=== PATIENT | female | born 1980 | race Caucasian/White ===

== ENCOUNTER 2024-08-10 08:18 | Day surgery (SDC) | payer BC ==
[2024-08-10] MEDS ORDERED: LIDOCAINE 1% (10MG/ML) FOR IV START INTRADERMA PRN (08:44)
[2024-08-10 09:17] VITALS: RESP 16; TEMP 98.5
[2024-08-10] MEDS: IV FLUID CONTINUATION 1,000 ML IV ONE (09:25)
[2024-08-10] MEDS: LACTATED RINGERS 1,000 ML IV SCH (09:26)
[2024-08-10] MEDS ORDERED: PROPOFOL 10 MG/ML 20 ML VIAL IV ONE (09:44)
--- NOTE | 2024-08-10 09:48 | P.GSHP ---
History of Present Illness H&P Date: 08/10/24 Chief Complaint: Epigastric abdominal pain, gastritis Is a 43-year-old female who send epigastric abdominal pain. Patient notes EGD to evaluate for possible gastritis. Past Medical History Past Medical History: No Reported History Additional Past Medical History / Comment(s): RT UPPER ABDOMINAL PAIN History of Any Multi-Drug Resistant Organisms: None Reported Past Surgical History: Cholecystectomy, Hysterectomy Additional Past Surgical History / Comment(s): WISDOM TEETH AND "I" TEETH REMOVED Past Anesthesia/Blood Transfusion Reactions: No Reported Reaction, Motion Sickness Additional Past Anesthesia/Blood Transfusion Reaction / Comment(s): NEVER HAS HAD GENERAL ANESTHESIA Smoking Status: Former smoker - Past Family History Mother Family Medical History: No Reported History Additional Family Medical History / Comment(s): Mother is alive at age 53 and healthy. Father Family Medical History: Hypertension Additional Family Medical History / Comment(s): Father is alive at age 53 with past medical history for hypertension. Sister(s) Additional Family Medical History / Comment(s): Patient has 3/2 sisters that are healthy. She has no brothers. Patient has 2 children of her own one 9-year-old son and a [id number] daughter that are healthy. Medications and Allergies Home Medications Medication Instructions Recorded Confirmed Type Escitalopram [Lexapro] 10 mg PO DAILY 08/10/24 08/10/24 History lamoTRIgine [LaMICtal] 200 mg PO DAILY 08/10/24 08/10/24 History Allergies Allergy/AdvReac Type Severity Reaction Status Date / Time codeine AdvReac Nausea & Verified 08/10/24 09:07 Vomiting Surgical - Exam Vital Signs Temp Pulse Resp BP Pulse Ox 98.5 F 71 16 136/96 100 08/10/24 09:16 08/10/24 09:16 08/10/24 09:16 08/10/24 09:16 08/10/24 09:16 - General well developed, well nourished, no distress - Eyes PERRL - ENT normal pinna - Neck no masses - Respiratory normal expansion - Cardiovascular Rhythm: regular - Abdomen Abdomen: soft, non tender Assessment and Plan Plan: Epigastric Lázaro pain, gastritis. Will perform EGD.
--- NOTE | 2024-08-10 09:59 | P.OP ---
Date of Procedure: 08/10/24 Preoperative Diagnosis: Gastritis Postoperative Diagnosis: Antral gastritis Procedure(s) Performed: EGD Anesthesia: MAC Surgeon: Bar Galindo Pathology: other ([facility]) Condition: stable Disposition: PACU Description of Procedure: The patient was placed on the endoscopy table in the lateral position. She received IV sedation. The gas was placed oropharynx passed in the esophagus and stomach. Scope was in place through the pylorus. The first and second portion of the duodenum appeared normal. The scope was then brought back to the antrum this appeared mildly F inflamed m. A biopsy performed. The scope was then retroflexed and the Mainer of the stomach appeared normal. The GE junction was at 40 cm. The distal esophagus appeared normal. The proximal esophagus appeared normal. Scope withdrawn for the patient.
[2024-08-10 10:13] VITALS: BP 129/89
[2024-08-10 10:23] VITALS: PULSE 63
== END 2024-08-10 10:35 | disposition home or self-care (01) ==
LOC: ORWHC2ENDO 08:18
PROVIDERS: ATTEND Surgery
DX: K29.70 Gastritis, unspecified, without bleeding
CPT/HCPCS: 43239; 88305

== ENCOUNTER → 2025-03-13 | Outpatient (CLI) | payer BC ==
[2025-03-13 17:17] VITALS: BP 126/90; PULSE 90; RESP 16; TEMP 98.8
--- NOTE | 2025-03-13 17:49 | P.SLEEP ---
History of Present Illness H&P Date: 03/13/25 This is a 44-year-old female patient with multitude of sleep complaints. The patient is having loud snoring, sleep fragmentation, sleep talking, and at times she is acting up on her dreams. She is known to have chronic anxiety and depression and she has had major depression episodes in the past and heart disease has been well treated on a combination of Lexapro and Lamictal. She is working at [employer]. Her functionality seems to be affected as the patient takes breaks during lunchtime when she goes to her car to take a nap. She goes to bed at 10:30 PM wakes up 6 AM in the morning and she maintains the same sleep schedule on weekends. Upon awakening in the morning, the patient f eels excessively fatigued and not refreshed. She feels that her sleep quality is poor. No sleep paralysis. No hallucinations. No cataplexy. No substance abuse. No head trauma. No previous history of stroke. No multiple sclerosis or any other neurological disorders. She drinks 2 cups of coffee in the morning. No smoking. No alcoholism. No substance abuse. No grinding of the teeth. No nocturnal panic attacks. No restlessness in lower extremities. She has gained approximate 20 pounds over the past 5 years. Review of Systems Constitutional: Reports daytime sleepiness, Reports fatigue, Reports weight gain Eyes: denies as per HPI, denies blurred vision, denies bulging eye, denies decreased vision, denies diplopia, denies discharge, denies dry eye, denies irritation, denies itching, denies pain, denies photophobia, denies loss of peripheral vision, denies loss of vision, denies tunnel vision/blind spots Ears: deny: decreased hearing, ear discharge, earache, tinnitus Ears, nose, mouth and throat: Reports as per HPI Breasts: absent: as per HPI, change in shape, gynecomastia, masses, nipple discharge, pain, skin changes, swelling Cardiovascular: Reports as per HPI Respiratory: Reports snoring Gastrointestinal: Reports as per HPI Genitourinary: Reports as per HPI Menstruation: Reports as per HPI Musculoskeletal: Reports as per HPI Musculoskeletal: absent: ankle pain, ankle stiffness, ankle swelling, as per HPI, elbow pain, elbow stiffness, elbow swelling, foot pain, foot stiffness, foot swelling, hand pain, hand stiffness, hand swelling, hip pain, hip stiffness, hip swelling, knee pain, knee stiffness, knee swelling, shoulder pain, shoulder stiffness, shoulder swelling, wrist pain, wrist stiffness, wrist swelling Integumentary: Reports as per HPI Neurological: Reports as per HPI Psychiatric: Reports anxiety, Reports change in sleep habits, Reports depression, Reports hypersomnia, Reports sleep disturbances Endocrine: Reports fatigue Hematologic/Lymphatic: Reports as per HPI Allergic/Immunologic: Reports as per HPI Past Medical History Past Medical History: No Reported History, Hyperlipidemia History of Any Multi-Drug Resistant Organisms: None Reported Past Surgical History: Cholecystectomy, Hysterectomy Additional Past Surgical History / Comment(s): WISDOM TEETH AND "I" TEETH REMOVED Past Anesthesia/Blood Transfusion Reactions: No Reported Reaction, Motion Sickness Additional Past Anesthesia/Blood Transfusion Reaction / Comment(s): NEVER HAS HAD GENERAL ANESTHESIA Past Psychological History: Depression Smoking Status: Former smoker Past Alcohol Use History: None Reported Additional Past Alcohol Use History / Comment(s): QUIT SMOKING FEBRUARY 2015, SMOKED FOR APPROX 15 YRS Past Drug Use History: None Reported - Past Family History Mother Family Medical History: No Reported History, Hyperlipidemia Additional Family Medical History / Comment(s): Mother is alive at age 53 and healthy. Father Family Medical History: Hyperlipidemia, Hypertension Additional Family Medical History / Comment(s): Father is alive at age 53 with past medical history for hypertension. Sister(s) Additional Family Medical History / Comment(s): Patient has 3/2 sisters that are healthy. She has no brothers. Patient has 2 children of her own one 9-year-old son and a [id number] daughter that are healthy. Medications and Allergies Home Medications Medication Instructions Recorded Confirmed Type Escitalopram [Lexapro] 10 mg PO DAILY 08/10/24 03/13/25 History lamoTRIgine [LaMICtal] 200 mg PO DAILY 08/10/24 03/13/25 History Cyclobenzaprine [Flexeril] 10 mg PO DAILY 03/13/25 03/13/25 History Gabapentin [Neurontin] 100 mg PO DAILY 03/13/25 03/13/25 History Allergies Allergy/AdvReac Type Severity Reaction Status Date / Time codeine AdvReac Nausea & Verified 08/10/24 09:07 Vomiting Physical Exam Vitals: Vital Signs Temp Pulse Resp BP Pulse Ox 03/13/25 17:15 98.8 F 90 16 126/90 100 The patient appeared well nourished and normally developed. Vital signs as documented. Body mass index is 26.3 Head exam is unremarkable. No scleral icterus or corneal arcus noted. Neck is without jugular venous distension, thyromegaly, or carotid bruits. Carotid upstrokes are brisk bilaterally. The patient has a Mallampati class III and an overbite Lungs are clear to auscultation and percussion. Cardiac exam reveals the PMI to be normally sized and situated. Rhythm is regular. First and second heart sounds normal. No murmurs, rubs or gallops. Abdominal exam reveals normal bowel sounds, no masses, no organomegaly and no aortic enlargement. Extremities are nonedematous and both femoral and pedal pulses are normal. Examination of the skin revealed no evidence of significant rashes, suspicious appearing nevi or other concerning lesions. Neurologically, the patient is awake and alert and the patient does not have any focal neurological deficit. Cranial nerves are essentially intact. Assessment and Plan Plan: Chronic hypersomnia, Hopewell score of 21. Patient is currently under investigation. Rule out obstructive sleep apnea. The patient is excessively sleepy during the day which is affecting her functionality. She states that she can fall asleep at nighttime. She also struggles to stay awake while driving. Loud snoring Sleep talking Possible REM behavioral disorder Chronic anxiety/depression maintained on a combination of Lexapro and Lamictal. Plan Polysomnography will be done as soon as possible Continue maintaining good sleep hygiene measures. Continue sleeping around 7 to 8 hours on a daily basis. Avoid driving especially when feeling drowsy or sleepy Will make further recommendations based on the results of the study. The patient is maintained on a combination of Lexapro and Lamictal. Her symptoms of depression seems to be adequately controlled for now. Will follow-up Sleep Note - Sleep Data ESS Total: 21 - Sleep Note Sleep Note: Temperature: 98.8 F Pulse Rate: 90 Respiratory Rate: 16 Blood Pressure: 126/90 SpO2: 100 Height: Weight: BMI: Neck Circumference: 13
== END ==
LOC: 3 N SLEEP 15:29
PROVIDERS: ATTEND Internal Medicine Critical Care Medicine
DX: G47.10 Hypersomnia, unspecified (principal); R06.83 Snoring; F17.200 Nicotine dependence, unspecified, uncomplicated; Z79.899 Other long term (current) drug therapy; Z88.5 Allergy status to narcotic agent
CPT/HCPCS: 99211

== ENCOUNTER 2025-05-22 19:46 | Outpatient (CLI) | payer BC ==
--- NOTE | 2025-06-01 | P.PCN ---
Date of Procedure: 05/22/25 Operative Findings: Polysomnography report History This is a 44-year-old female patient with multitude of sleep complaints. The patient is having loud snoring, sleep fragmentation, sleep talking, and at times she is acting up on her dreams. She is known to have chronic anxiety and depression and she has had major depression episodes in the past and heart disease has been well treated on a combination of Lexapro and Lamictal. She is working at [employer]. Her functionality seems to be affected as the patient takes breaks during lunchtime when she goes to her car to take a nap. She goes to bed at 10:30 PM wakes up 6 AM in the morning and she maintains the same sleep schedule on weekends. Upon awakening in the morning, the patient feels excessively fatigued and not refreshed. She feels that her sleep quality is poor. No sleep paralysis. No hallucinations. No cataplexy. No substance abuse. No head trauma. No previous history of stroke. No multiple sclerosis or any other neurological disorders. She drinks 2 cups of coffee in the morning. No smoking. No alcoholism. No substance abuse. No grinding of the teeth. No nocturnal panic attacks. No restlessness in lower extremities. She has gained approximate 20 pounds over the past 5 years. Physical findings Weight is 156 pounds with a BMI of 26.4 Technical description The patient was studied using a standard complex polysomnography protocol that included recording of the Lead II EKG, Central, occipital and frontal EEG, right and left outer canthus EOG, submental EMG, right and left anterior tibialis EMG, respiratory airflow by thermocouple and or pressure/flow transducer, respiratory efforts by abdominal and thoracic PVDF belts, oxygen saturation by cable oximetry. Position by observation synchronized the PSG. Equipment used: [employer] Sleep architecture Total recording duration was 414 minutes. The total sleep time was 363.5 minutes. The wake after sleep onset time was 23.5 minutes. The overall sleep efficiency was 87.8%. Latency to sleep onset was 28 minutes. Latency to REM sleep was 189.5 minutes. The sleep architecture was characterized by 10.6% stage I, 85.4% stage II, 0% stage III and 8.5 % REM sleep. The total arousal index was 10.6 Respiratory analysis The patient had a total of 0 obstructive apnea, 0 mixed apnea and a total of 1 hypopnea within the resulting AHI of 0.2. In addition, the patient was central apnea with a central apnea index of 0.2. There was no evidence of any nocturnal oxygen desaturation. Baseline pulse ox was 96% while awake. Lowest oxygen saturation was 88% and the patient was able to maintain oxygen saturation above 90% throughout the sleep study. Cardiac summary Patient had a average heart rate of 77 with a minimum heart rate of 74 and a maximum heart rate of 82 Periodic movement events There was a total of 35 periodic limb movements with arousals with an index of 5.8 Arousal events There was a total of 64 arousals with an arousal index of 10.6. Respiratory arousal index was 0 Assessment Chronic hypersomnia, Lorman score of 21. Patient is currently under investigation. No evidence of any significant sleep breathing disorder. AHI was calculated to be at 0.2. Furthermore, there was no evidence of any significant enlargement saturations. Abnormal sleep architecture with over representation of stage I stage II sleep with diminished delta wave and REM Sleep efficiency of 87% Snoring, Without sleep apnea loud snoring Sleep talking Possible REM behavioral disorder Chronic anxiety/depression maintained on a combination of Lexapro and Lamictal. Plan Polysomnography indicates no sleep apnea Continue maintaining good sleep hygiene measures. Continue sleeping around 7 to 8 hours on a daily basis. Avoid driving especially when feeling drowsy or sleepy The patient is maintained on a combination of Lexapro and Lamictal. Her symptoms of depression seems to be adequately controlled for now. Consider daytime stimulation therapy with modafinil as the patient is having excessive fatigue and sleepiness affecting daytime functionality. Will follow
== END 2025-05-23 05:30 | disposition home or self-care (01) ==
LOC: 3 N SLEEP 19:46
PROVIDERS: ATTEND Internal Medicine Critical Care Medicine
DX: G47.33 Obstructive sleep apnea (adult) (pediatric) (principal); F32.A Depression, unspecified; F41.9 Anxiety disorder, unspecified; F17.200 Nicotine dependence, unspecified, uncomplicated; Z88.5 Allergy status to narcotic agent
CPT/HCPCS: 95810